=== PATIENT | female | born 1955 | race Hispanic/Latino ===

== ENCOUNTER 2017-12-21 15:34 | Emergency (ER) | payer MEDICAID ==
[~2017-12-21 15:34] MED LIST: ASPI-1005 PO; BUPR300T54 PO; DILT180C11 PO; ESCI10TA54 PO; NITR0.4T50 SL; PRAV40TA3 PO; TRAM50TA4 PO; TRAZ300T2 PO; [UNRECOGNIZED DRUG - OTHER] PO
[2017-12-21] MEDS ORDERED: ACETAMINOPHEN EXTRA STRENGTH 500 MG TABLET ONE (16:37)
[2017-12-21] MEDS ORDERED: KETOROLAC TROMETHAMINE 30MG/ML ONE (16:44)
[2017-12-21] MEDS ORDERED: SODIUM CHLORIDE 0.9% 1000ML 1,000 ML IV ONE (16:44)
[2017-12-21] MEDS ORDERED: ONDANSETRON HCL 4 MG/2 ML VIAL ONE (16:44)
[2017-12-21 16:52] LABS: BASOPHILS % (AUTO) 0.7 % (0.0-5.0); EOSINOPHILS % (AUTO) 1.6 % (0.0-8.0); LYMPHOCYTES % (AUTO) 16.3 % (21.0-51.0); MEAN CORPUSCULAR HEMOGLOBIN 31.4 pg (27.0-33.0); MEAN CORPUSCULAR VOLUME 92.4 fL (79-99); NEUTROPHILS % (AUTO) 71.4 % (40.0-77.0); NUCLEATED RED BLOOD CELLS 0.2 % (0.0-0.19); PLATELET COUNT (AUTO) 122 K/uL (130-400); RED BLOOD CELL COUNT(AUTO) 4.65 MIL/uL (4.00-5.50); RED CELL DISTRIBUTION WIDTH 14.4 % (11.0-15.5); WHITE BLOOD COUNT (AUTO) 4.9 K/uL (4.8-10.8)
[2017-12-21] MEDS ORDERED: IPRATROPIUM/ALBUTEROL SULFATE 3 ML SOLUTION IH ONE (16:54)
[2017-12-21 17:02] LABS: CREATININE 0.7 mg/dL (0.5-1.5); POTASSIUM 3.8 mmol/L (3.5-5.1)
== END 2017-12-21 18:35 | disposition home or self-care (01) ==
LOC: EDH 15:34
DX: J09.X2 Influenza due to identified novel influenza A virus with other respiratory manifestations (principal); G47.00 Insomnia, unspecified; Z98.51 Tubal ligation status; Z72.0 Tobacco use
CPT/HCPCS: 36415; 71046; 80048; 85025; 87804 ×2; 94640; 96361; 96374; 96375; 99285; J1885; J2405; J7030

== ENCOUNTER 2021-06-27 19:47 | Emergency (ER) | payer MEDICAID ==
[~2021-06-27] VITALS: Ht 162.6 cm; Wt 114.8 kg
[~2021-06-27 19:47] MED LIST changes: +BUPR-317 PO; -BUPR300T54 PO; +DILT-116 PO; -DILT180C11 PO; +ESCI-8 PO; -ESCI10TA54 PO
[2021-06-27 19:49] VITALS: BP 166/91
== END 2021-06-28 00:46 | disposition left against medical advice (07) ==
LOC: EDH 19:47
DX: T18.9XXA Foreign body of alimentary tract, part unspecified, initial encounter (principal); X58.XXXA Exposure to other specified factors, initial encounter; Y93.89 Activity, other specified; Y92.89 Other specified places as the place of occurrence of the external cause; Y99.8 Other external cause status; Z53.21 Procedure and treatment not carried out due to patient leaving prior to being seen by health care provider

== ENCOUNTER 2021-10-01 23:53 | Emergency (ER) | payer MEDICAID ==
[~2021-10-01] VITALS: Ht 157.5 cm; Wt 109.3 kg
[2021-10-02 00:16] VITALS: BP 134/87
[2021-10-02] MEDS ORDERED: CEFTRIAXONE 1G VIAL IM ONE (01:30)
== END 2021-10-02 02:30 | disposition home or self-care (01) ==
LOC: EDH 23:53
DX: T63.391A Toxic effect of venom of other spider, accidental (unintentional), initial encounter (principal); L53.9 Erythematous condition, unspecified; E11.9 Type 2 diabetes mellitus without complications; E78.00 Pure hypercholesterolemia, unspecified; F32.A Depression, unspecified; I10 Essential (primary) hypertension; Z79.82 Long term (current) use of aspirin; Z79.899 Other long term (current) drug therapy; Z96.653 Presence of artificial knee joint, bilateral; Y92.89 Other specified places as the place of occurrence of the external cause
CPT/HCPCS: 96372; 99284; J0696

== ENCOUNTER → 2024-07-09 | Outpatient (CLI) | payer MEDICARE ==
[~2024-07-09] MED LIST changes: -BUPR-317 PO; +BUPR-561 PO
== END | disposition home or self-care (01) ==
LOC: SHCH 14:47
PROVIDERS: ATTEND Internal Medicine Cardiovascular Disease
DX: I70.203 Unspecified atherosclerosis of native arteries of extremities, bilateral legs (principal)
CPT/HCPCS: 93925

== ENCOUNTER → 2025-01-14 | Outpatient (CLI) | payer OTHER, MEDICARE ==
--- NOTE | 2025-01-14 12:50 | HMCIMG ---
Exam Type: FINGER(S) 2+VWS RT Clinical Information: RT INDEX FINGER PAIN Comparison: None Findings and impression: Mild fracture involving the dorsal margin of the distal phalanx of the second digit. Intra-articular extension. Degenerative changes of the visualized interphalangeal joints and no other interval changes.
== END | disposition home or self-care (01) ==
LOC: RAH 08:36
PROVIDERS: ATTEND Nurse Practitioner Family
DX: S62.630A Displaced fracture of distal phalanx of right index finger, initial encounter for closed fracture (principal); M19.041 Primary osteoarthritis, right hand; M79.644 Pain in right finger(s); X58.XXXA Exposure to other specified factors, initial encounter; Y93.89 Activity, other specified; Y92.89 Other specified places as the place of occurrence of the external cause; Y99.8 Other external cause status
CPT/HCPCS: 73140

== ENCOUNTER → 2025-07-13 | Outpatient (CLI) | payer OTHER, MEDICAID ==
[~2025-07-13] MED LIST changes: -BUPR-561 PO; +BUPR-721 PO; -PRAV40TA3 PO; +PRAV40TA62 PO
[2025-07-13] MEDS: REGADENOSON 0.4 MG/5 ML PF SYG IVP ONE (14:31)
--- NOTE | 2025-07-14 07:33 | HMCSR ---
APPROVED REPORT Height: 5 ft 2in Weight: 201 lbs TEST INDICATIONS SHORTNESS OF BREATH, The imaging protocol used to acquire images was Rest Tc-99m/stress Tc-99m 1 day Consent: The procedure was explained and understood by the patient. Informerd consent was witnessed Magnolia Harris RN First, low dose rest was performed then high dose stress. RESTING DATA: The resting ekg shows: NSR Rest SPECT myocardial perfusion imaging was performed in supine position minutes following the intra venous injection of 10 mCi of Tc-99 Sestamibi. Time of rest injection: Date: 07/13/2025 PHARMACOLOGIC STRESS: Pharmacologic stress test was performed by injecting regadenoson 0.4 mg IV push followed by the intra venous injection of 30 mCi of Tc-99 Sestamibi. Time of stress injection: Date: 07/13/2025 Heart Rate at time of stress injection: 52 bpm. The images were gated to evaluate regional wall motion and calculate left ventricular ejection fracti on. STRESS DETAILS Reason for Termination: Infusion complete Stress Symptoms: Dyspnea Max HR Achieved: 82 bpm % of APMHR Achieved: 63 Max Blood Pressure: 130/78 mmHg Stress ECG: NSR LEFT VENTRICLE Size: The left ventricular size is normal. Systolic Function:The left ventricular systolic function is normal. The left ventricular ejection fraction was calculated to be 77%.TID = . LV PERFUSION Global photopenia noted on stress images with improvement on rest images. Reversible anteroapical and septal defects. Conclusion The left ventricular size is normal. The left ventricular systolic function is normal. Global photopenia noted on stress images with improvement on rest images. Reversible anteroapical and septal defects. The left ventricular ejection fraction was calculated to be 77%.
== END | disposition home or self-care (01) ==
LOC: RAH 10:13
PROVIDERS: ATTEND Internal Medicine Cardiovascular Disease
DX: R06.02 Shortness of breath (principal)
CPT/HCPCS: 78452; 93017; J2785; A9500 ×2

== ENCOUNTER → 2025-07-15 | Outpatient (CLI) | payer OTHER, MEDICAID ==
[~2025-07-15] MED LIST changes: +ALBUTEROL 0.083% 2.5 MG/3 ML INH IH ONE
== END | disposition home or self-care (01) ==
LOC: RESP 14:14
PROVIDERS: ATTEND Internal Medicine Cardiovascular Disease
DX: R06.02 Shortness of breath (principal)
CPT/HCPCS: 94060

== ENCOUNTER 2025-08-17 06:33 | Day surgery (SDC) | payer OTHER, MEDICAID ==
[2025-08-14 10:56] LABS: IMMATURE GRANULOCYTE ABSOLUTE 0.01 K/uL (0-1); NUCLEATED RED BLOOD CELLS 0.0 % (0.0-0.19); PLATELET COUNT (AUTO) 201 K/uL (130-400); RED BLOOD CELL COUNT(AUTO) 4.64 MIL/uL (4.00-5.50); RED CELL DISTRIBUTION WIDTH 13.6 % (11.0-15.5); WHITE BLOOD COUNT (AUTO) 5.1 K/uL (4.8-10.8)
[2025-08-14 11:06] LABS: CREATININE 0.7 mg/dL (0.5-1.0); GLOMERULAR FILTR. RATE CALC 94.0 mL/min (>90); GLUCOSE,RANDOM 101.0 mg/dL (70-105); INR 1.01 (0.85-1.15); SODIUM SERUM 141.0 mmol/L (136-145); UREA NITROGEN, BLOOD 6.0 mg/dL (7-18)
[2025-08-14 11:09] LABS: APPEARANCE,URINE CLOUDY (CLEAR); GLUCOSE, URINE (UA) NEGATIVE (NEGATIVE); LEUKOCYTE ESTERASE ,URINE NEGATIVE Leu/uL (NEGATIVE); NITRATE,URINE 1+ (NEGATIVE); OCCULT BLOOD,URINE NEGATIVE (NEGATIVE)
[2025-08-14 11:12] LABS: ADD UA MICROSCOPIC YES
[2025-08-14 11:22] VITALS: BP 125/69; PULSE 60; RESP 13; TEMP 97.7
[2025-08-14 11:28] LABS: SQUAMOUS EPITHELIAL CELL,UR FEW /HPF (0-2)
--- NOTE | 2025-08-14 15:07 | NUR ---
report reported ua and urine culture pending to patricio soto. ok to proceed
--- NOTE | 2025-08-14 15:15 | EKG ---
[facility] Test Date: 2025-08-14 Test Time: 10:39:22 Pat Name: ERIKA RIVERO Department: [facility] Room: Gender: F Lathe Winder: [id number] : 1955 Requested By: Tato LEROY Order Number: [id number] Reading MD: Donte Abernathy Measurements Intervals [place] Rate: 53 P: 6 NM: 149 QRS: 12 QRSD: 99 T: 45 QT: 413 QTc: 388 Interpretive Statements Sinus rhythm Probable lateral infarct, old Compared to ECG 07/02/2015 14:27:12 Myocardial infarct finding now present Electronically Signed On 08-14-2025 18:30:47 CDT by Donte Abernathy Please click the below link to view image of tracing.
--- NOTE | 2025-08-14 15:54 | HMCIMG ---
CHEST 1VW REASON: PREOP COMPARISON: Prior study from 0-2017 is available. FINDINGS: Single view of the chest was obtained. Lungs are clear. Heart size is normal. There is no pulmonary vascular congestion. Mediastinum and bony thorax appear unremarkable. IMPRESSION: 1. Unchanged from prior study with no acute cardiopulmonary process
[2025-08-17] VITALS (8 sets, daily range): BP systolic 117–141; BP diastolic 61–74; PULSE 57–63; RESP 12–17; TEMP 97–97.3
[~2025-08-17] VITALS: Ht 157.5 cm; Wt 91.7 kg
[~2025-08-17 06:33] MED LIST changes: -ALBUTEROL 0.083% 2.5 MG/3 ML INH IH ONE; -ASPI-1005 PO; -BUPR-721 PO; -DILT-116 PO; -ESCI-8 PO; +MOUNJARO SQ; -NITR0.4T50 SL; -PRAV40TA62 PO; -TRAM50TA4 PO; -TRAZ300T2 PO; -[UNRECOGNIZED DRUG - OTHER] PO
[2025-08-17] MEDS: 0.9%NACL 1000ML 1,000 ML IV SCH (08:03)
[2025-08-17] MEDS ORDERED: HEParin-NS 1,000 UNIT/500 ML 1,000 ML IV ONE (08:42)
[2025-08-17] MEDS ORDERED: SODIUM BICARB 50MEQ 50ML VIAL 50 ML ONE (08:42)
[2025-08-17] MEDS ORDERED: LIDOCAINE HCL 400MG/20ML VIAL ONE (08:42)
[2025-08-17] MEDS ORDERED: IOHEXOL 350 MG/ML 100ML INFUS..BTL IV ONE (08:42)
[2025-08-17] MEDS ORDERED: NITROGLYCERIN 50MG VIAL ONE (08:43)
[2025-08-17] MEDS ORDERED: MIDAZOLAM HCL 1 MG/ML 2ML VIAL ONE ×3 (08:49→09:14)
[2025-08-17] MEDS ORDERED: ASPIRIN 81MG CHEW TAB ONE (09:02)
--- NOTE | 2025-08-17 10:02 | CCATH ---
PROCEDURES: 1. Left heart catheterization. 2. Selective diagnostic right and left coronary angiogram. 3. Conscious sedation for 30 minutes. INDICATIONS: 1. Recurrent angina. 2. Abnormal Lexiscan Cardiolite. 3. History of coronary artery disease COMPLICATIONS: None. TOTAL CONTRAST: Approximately 30 mL. APPROACH: Right radial approach. DESCRIPTION OF PROCEDURE: The patient was taken to the cardiac metallurgy laboratory technician after appropriate operative consents were signed. The patient was prepped and draped in the usual fashion. After conscious sedation was administered, the right radial artery region was infiltrated with 2% Xylocaine without epinephrine. A 6-[place] Slender sheath was advanced in a retrograde fashion with modified Seldinger technique. At this point, a TIG-4 catheter was advanced over an indwelling wire. This was positioned into the left ventricular cavity. Left ventricular end-diastolic pressure measurement was obtained. Ventriculography was deferred. The patient had preserved systolic function with noninvasive studies. Pullback documented no evidence of aortic stenosis. At this point, the catheter was engaged in the ostium of the left main coronary artery. This vessel was imaged in multiplane. This was a large vessel that was free of disease and bifurcated into an LAD, and a circumflex. The LAD was ectatic in its proximal portion, giving rise to several diagonals of septal perforators. There were no significant stenotic lesions. The mid to distal segment of the LAD had a moderate intramyocardial bridge. Circumflex was ectatic in the proximal portion with some contrast stasis. Giving rise to a tiny OM1 and a huge branching OM2. There was no significant disease in the circumflex system. The right coronary artery was a large vessel that gives rise to an acute marginal PD and PLVB system. The right coronary artery was free of disease. At this point, the procedure was completed, the catheter was withdrawn over an indwelling wire. Radial band was applied with good hemostasis. The patient tolerated the procedure well with stable status at the end. FINAL IMPRESSION: 1. Ectatic coronary arteries with contrast stasis. 2. 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 3. No aortic stenosis. 4. Preserved left ventricular function by noninvasive studies. PLAN: Continue medical management. TID: [id number] RECEIPT: [id number]
--- NOTE | 2025-08-17 12:16 | NUR ---
Right Radial site without sign of bleeding bruising or hematoma. Dressing remains clean and dry. Radial pulses intact to bue's. Patient and Family instructed on importance of keeping right wrist straight and POC until discharge. Explained Vasc band procedure and expectations. VASC band removed per protocol with light pressure dressing applied. Both Patient and Family voiced understanding in full. PIV removed earlier in Auditor Supervisor. Patient tolerated a light lunch and voided in bathroom. Full and complete discharge instructions given to Patient and Boyfriend in writing and verbally. Both voiced understanding . W/C to POV via w/c to home.
== END 2025-08-17 12:20 | disposition home or self-care (01) ==
LOC: DAH 06:33
PROVIDERS: ATTEND Internal Medicine Cardiovascular Disease
DX: R94.39 Abnormal result of other cardiovascular function study (principal); I25.119 Atherosclerotic heart disease of native coronary artery with unspecified angina pectoris; R07.9 Chest pain, unspecified; R06.02 Shortness of breath; I10 Essential (primary) hypertension; E11.9 Type 2 diabetes mellitus without complications; E78.2 Mixed hyperlipidemia; E66.9 Obesity, unspecified; Z68.38 Body mass index [BMI] 38.0-38.9, adult; Z82.49 Family history of ischemic heart disease and other diseases of the circulatory system; Z79.899 Other long term (current) drug therapy; Z98.890 Other specified postprocedural states
CPT/HCPCS: 80048; 83880; 85025; 85610; 85730; 87086 ×2; 87186; 81001; 36415; 71045; 93005; 93458; 99156; 99157; 82948; C1769; A4649; C1894; J3010; J3490 ×4; J1644 ×2; J2250 ×3; Q9967; A4215; A4222; A6260; A4221; A4663; A4216; A6258; A4606; Q9965; A4223 ×3